=== PATIENT | male | born 1990 | race Two or more races ===

== ENCOUNTER → 2018-05-26 | Outpatient (CLI) | payer OTHER ==
[2018-05-26 15:05] LABS: Hepatitis B Surface Antibody Positive
[2018-05-26 16:08] LABS: Hepatitis B Surface Antigen Negative (Negative)
== END | disposition home or self-care (01) ==
LOC: LAB 14:15
DX: Z57.8 Occupational exposure to other risk factors (principal)
CPT/HCPCS: 36415; 86703; 86706; 86803; 87340